=== PATIENT | female | born 1960 | race Caucasian/White ===

== ENCOUNTER 2017-06-20 21:29 | Emergency (ER) | payer BC, OTHER ==
[2017-06-20] MEDS: OXYCODONE/APAP 5MG/325MG(BULK FOR ED) 1 TABLET PO (23:26)
[2017-06-20] MEDS: PENICILLIN V POTASSIUM 500 MG TAB PO (23:26)
[2017-06-20] MEDS: LOSARTAN 50 MG TAB PO (23:37)
== END 2017-06-20 23:42 | disposition home or self-care (01) ==
LOC: M ED 21:29
DX: K04.7 Periapical abscess without sinus (principal); J05.10 Acute epiglottitis without obstruction; E11.9 Type 2 diabetes mellitus without complications; I10 Essential (primary) hypertension; Z91.013 Allergy to seafood; F17.210 Nicotine dependence, cigarettes, uncomplicated
CPT/HCPCS: 99282

== ENCOUNTER 2017-08-13 10:27 | Emergency (ER) | payer BC | END 2017-08-13 11:44 | disposition home or self-care (01) | LOC: M ED 10:27 | DX: K05.20 Aggressive periodontitis, unspecified (principal); Z72.0 Tobacco use; Z79.899 Other long term (current) drug therapy; Z91.013 Allergy to seafood | CPT/HCPCS: 99283 ==

== ENCOUNTER → 2020-11-23 | Outpatient (REF) | payer BC ==
[~2020-11-23] MED LIST: AMLO1TAB24; AUGM875T28 PO; HYDR-3715 PO; IBUP-1022 PO; LOSA100T50; PENI500T PO; PERC5TAB12 PO
== END ==
LOC: M LAB REF 16:28
PROVIDERS: ATTEND Nurse Practitioner Adult Health
DX: E04.2 Nontoxic multinodular goiter (principal)

== ENCOUNTER → 2020-12-14 | Outpatient (CLI) | payer BC ==
--- NOTE | 2020-12-14 10:10 | REPMRS ---
Patient History The patient states she had a clinical breast exam in November 2020. Patient is postmenopausal and is nulliparous. Family history of colorectal cancer at age 82 in mother. Patient states no breast complaints today. Patient has signed MRS History Sheet. Digital Woman Screen Mammo: December 14, 2020 - Exam #: [id number] Bilateral CC and MLO view(s) were taken. Technologist: Meghana Ross, Technologist FINDINGS: There are scattered fibroglandular densities. Screening. Digital screening (2D) mammography was performed bilaterally. Additionally, breast tomosynthesis (3D) mammography was perfomed bilaterally in the CC and MLO projections. Today's examination is the initial screening examination. By history, the patient has no complaints of a palpable breast abnormality or other significant breast complaints. The breasts are symmetric in size and shape. There are no masses. There is no internal architectural distortion.Benign appearing calcifications are seen. There are no suspicious microcalcific clusters. Skin thickening or nipple retraction is not present. IMPRESSION: BI-RADS Category 2- Benign Findings. There is no evidence of malignant alteration of the breasts. Followup examination recommended in one year. The Volpara volumetric breast density category is B, there are scattered areas of fibroglandular densities. This mammogram was read with the assistance of [employer],an FDA approved computer aided detection system for mammography. The lifetime Tyrer-Cuzick score is 7.6 % Negative x-ray reports should not delay surgical consultation if a dominant or clinically suspicious mass is present. Not all breast cancers can be identified by mammography. Therefore, we recommend that you continue to perform regular breast self-examination and physical examination and then promptly contact your physician of any concerns or changes. Adenosis and dense breasts may obscure an underlying neoplasm. Assessment: BI-RADS/ACR category 2 mammogram. Benign Findings. Recommendation Routine screening mammogram of both breasts in 1 year. Electronically Signed By: Derick Gaspar DO 12/14/20 0986
== END ==
LOC: M WHC 08:34
PROVIDERS: ATTEND Nurse Practitioner Adult Health
DX: Z12.31 Encounter for screening mammogram for malignant neoplasm of breast (principal); Z80.0 Family history of malignant neoplasm of digestive organs; R92.1 Mammographic calcification found on diagnostic imaging of breast

== ENCOUNTER → 2020-12-26 | Outpatient (CLI) | payer BC ==
--- NOTE | 2020-12-26 15:12 | REP ---
INDICATION: MULTI NODULAR GOITER COMPARISON: None available TECHNIQUE: Luis scale and color evaluation of the thyroid gland using the linear high frequency transducer. FINDINGS: Thyroid gland is heterogeneous and enlarged. Right thyroid lobe measures 6.4 x 3.1 x 2.9 cm and includes 2.1 x 1.7 x 1.8 cm hypoechoic upper pole nodule, 3.1 x 3.2 x 2.4 cm complex conglomerate of multiple nodules with calcifications, and 6 mm upper pole rim calcified cyst. Isthmus measures 3.0 mm in width. Left thyroid lobe measures 5.6 x 1.5 x 2.3 cm and includes 7 mm cyst adjacent to the isthmus, 1 x 0.8 x 0.6 cm complex cyst along the medial midpole, and 1.1 x 0.6 x 1.0 cm posterior lower pole hypoechoic complex nodule. IMPRESSION: Enlarged heterogeneous multinodular thyroid gland. Correlation with thyroid function tests and nuclear medicine imaging may be warranted. <Electronically signed by Redd Omre > 12/26/20 [id number]
== END ==
LOC: M RAD 14:16
PROVIDERS: ATTEND Nurse Practitioner Adult Health
DX: E04.2 Nontoxic multinodular goiter (principal)

== ENCOUNTER → 2021-01-25 | Outpatient (CLI) | payer BC ==
[~2021-01-25] MED LIST changes: +LIDOCAINE 1% MDV 20ML VIAL As Ordered ONE; +METF500T13 PO
[2021-01-25 10:30] VITALS: BP 154/66
--- NOTE | 2021-01-25 17:04 | REP ---
INDICATION: RT UPPER/LOWER POLE NODULES. COMPARISON: None. TECHNIQUE: The procedure was performed by KENZIE Justin, under the direct supervision of Dr. Luis. The risks and benefits of the procedure were explained to the patient and an informed consent was obtained both verbally and written. Directly prior to the start of the procedure a formal time-out was completed in the procedure room. The right upper pole thyroid nodule was localized using ultrasound guidance. The skin was prepped and draped in a sterile fashion. Ten mL of 1% lidocaine was used as a local anesthetic. Using ultrasound guidance a 4 fine needle aspirations were obtained using 25 gauge needles. The right lower pole thyroid nodule was localized using ultrasound guidance. Ten mL of 1% lidocaine was used as a local anesthetic. Using ultrasound guidance a 4 fine needle aspirations were obtained using 25 gauge needles The patient tolerated the procedure well and there were no immediate complications. After the appropriate amount of monitored convalescence the patient was discharged from the department. FINDINGS: Using ultrasound guidance 4 fine-needle aspirations were obtained using 25 gauge needles from the right upper pole thyroid nodule. 4 fine-needle aspirations were obtained using 25 gauge needles from the right lower pole thyroid nodule as well. These were sent to the lab for further evaluation. Results pending. IMPRESSION: Successful ultrasound-guided right upper and lower pole thyroid nodule fine needle aspirations. <Electronically signed by Maribel Perkins > 01/25/21 1111 <Electronically signed by Michael Luis > 01/25/21 1700
== END ==
LOC: M IRPRO 09:08
PROVIDERS: ATTEND Nurse Practitioner Adult Health
DX: R89.6 Abnormal cytological findings in specimens from other organs, systems and tissues (principal)

== ENCOUNTER → 2021-03-14 | Outpatient (CLI) | payer BC ==
[~2021-03-14] MED LIST changes: -LIDOCAINE 1% MDV 20ML VIAL As Ordered ONE
== END ==
LOC: M LABSMTC 09:53
PROVIDERS: ATTEND Anesthesiology
DX: Z01.818 Encounter for other preprocedural examination (principal); Z11.52 Encounter for screening for COVID-19

== ENCOUNTER 2021-03-19 11:02 | Day surgery (SDC) | payer BC ==
[~2021-03-19] VITALS: Ht 177.8 cm; Wt 100.4 kg
[~2021-03-19 11:02] MED LIST changes: +NS 1,000 ML IV SCH
--- NOTE | 2021-03-19 13:36 | ROOR ---
Patient Name: Gina Gupta Procedure Date: 03/19/2021 1:08 PM Date of : 1960 Age: 60 Room: [facility] Gender: Female Note Status: Finalized Procedure: Total Colonoscopy to Cecum + Hot Snare Polypectomy + Hemoclips Indications: Positive Cologuard test Providers: Bird Bailey MD Referring MD: Viktoria Lamb NP Requesting Provider: Medicines: Monitored Anesthesia Care Complications: No immediate complications. Procedure: Pre-Anesthesia Assessment: - The heart rate, respiratory rate, oxygen saturations, blood pressure, adequacy of pulmonary ventilation, and response to care were monitored throughout the procedure. The Colonoscope was introduced through the anus and advanced to the cecum, identified by appendiceal orifice and ileocecal valve. The colonoscopy was performed without difficulty. The patient tolerated the procedure well. The quality of the bowel preparation was good. Findings: The perianal and digital rectal examinations were normal. Non-bleeding internal hemorrhoids were found during retroflexion. The hemorrhoids were small and Grade I (internal hemorrhoids that do not prolapse). Non-bleeding internal hemorrhoids were found during retroflexion. The hemorrhoids were small and Grade I (internal hemorrhoids that do not prolapse). Scattered small-mouthed diverticula were found in the recto-sigmoid colon, sigmoid colon and descending colon. A medium polyp was found at 35 cm proximal to the anus. The polyp was semi-pedunculated. The polyp was removed with a hot snare. Resection and retrieval were complete. To prevent bleeding after the polypectomy, two hemostatic clips were successfully placed. There was no bleeding at the end of the procedure. The exam was otherwise without abnormality on direct and retroflexion views. Impression: - Non-bleeding internal hemorrhoids. - Non-bleeding internal hemorrhoids. - Diverticulosis in the recto-sigmoid colon, in the sigmoid colon and in the descending colon. - One medium polyp at 35 cm proximal to the anus, removed with a hot snare. Resected and retrieved. Clips were placed. - The examination was otherwise normal on direct and retroflexion views. - The exam was otherwise normal to the cecum. Recommendation: - Patient has a contact number available for emergencies. The signs and symptoms of potential delayed complications were discussed with the patient. Return to normal activities tomorrow. Written discharge instructions were provided to the patient. - High fiber diet. - Discharge patient to home. - Continue present medications. - Await pathology results. - Telephone GI clinic for pathology results in 1 week. - Repeat colonoscopy in 5 years for surveillance based on pathology results. - Return to referring physician. - The findings and recommendations were discussed with the patient. Procedure Code(s): --- Professional --- 13502, Colonoscopy, flexible; with removal of tumor(s), polyp(s), or other lesion(s) by snare technique Diagnosis Code(s): --- Professional --- K64.0, First degree hemorrhoids K63.5, Polyp of colon R19.5, Other fecal abnormalities K57.30, Diverticulosis of large intestine without perforation or abscess without bleeding CPT copyright 2019 [employer]. All rights reserved. The codes documented in this report are preliminary and upon sergeant of corrections review may be revised to meet current compliance requirements. Bird Bailey MD Bird Bailey MD 03/19/2021 1:36:15 PM Electronically signed by Bird Bailey MD Number of Addenda: 0 Note Initiated On: 03/19/2021 1:08 PM Estimated Blood Loss: Estimated blood loss: none.
[2021-03-19] MEDS ORDERED: LIDOCAINE 2% 100MG/5ML SDV (FOR ANES.) As Ordered ONE (13:39)
[2021-03-19] MEDS ORDERED: propofoL 200 MG/20 ML VIAL As Ordered ONE (13:39)
[2021-03-19 13:55] VITALS: BP 120/67
== END 2021-03-19 14:01 | disposition home or self-care (01) ==
LOC: M OPP 11:02
PROVIDERS: ATTEND Internal Medicine Gastroenterology
DX: R19.5 Other fecal abnormalities (principal); K64.0 First degree hemorrhoids; D12.6 Benign neoplasm of colon, unspecified; K57.30 Diverticulosis of large intestine without perforation or abscess without bleeding; F17.210 Nicotine dependence, cigarettes, uncomplicated; Z79.84 Long term (current) use of oral hypoglycemic drugs; Z79.899 Other long term (current) drug therapy; Z91.013 Allergy to seafood; Z91.018 Allergy to other foods

== ENCOUNTER → 2022-08-19 | Outpatient (CLI) | payer BC ==
[~2022-08-19] MED LIST changes: +LOSA100T46; -LOSA100T50; -NS 1,000 ML IV SCH
== END ==
LOC: M RAD 14:16
PROVIDERS: ATTEND Internal Medicine
DX: E04.2 Nontoxic multinodular goiter (principal)